=== PATIENT | female | born 1960 | race Caucasian/White ===

== ENCOUNTER 2023-12-29 11:13 | Emergency (ER) | payer MEDICARE, OTHER ==
[~2023-12-29] VITALS: Ht 165.1 cm; Wt 74.8 kg
[2023-12-29] MEDS ORDERED: ACETAMINOPHEN ES 500 MG TABLET ONE (11:57)
[2023-12-29] MEDS ORDERED: IBUPROFEN 400 MG TABLET ONE (11:58)
[2023-12-29] MEDS: IBUPROFEN 400 MG TABLET PO ONE (12:00)
[2023-12-29] MEDS: ACETAMINOPHEN 325 MG TABLET PO ONE (12:01)
[2023-12-29] MEDS ORDERED: DICL1PAT13 TP (13:17)
[2023-12-29 13:21] VITALS: BP 121/78; TEMP 98.3; O2SAT 98
== END 2023-12-29 13:24 | disposition home or self-care (01) ==
LOC: ER 11:13
DX: M54.81 Occipital neuralgia (principal); G43.909 Migraine, unspecified, not intractable, without status migrainosus; Z79.899 Other long term (current) drug therapy
CPT/HCPCS: 70450; 72125; A4606; A4663; A9150